=== PATIENT | female | born 1985 | race Caucasian/White ===

== ENCOUNTER 2019-08-27 17:27 | Inpatient (IN) | payer SELFPAY ==
[2019-08-27] MEDS ORDERED: Ondansetron ODT 4 MG TAB PO PRN (19:28)
[2019-08-27] MEDS ORDERED: Dextrose 50% Abboject 50 ML SYRINGE SLOW IVP PRN (19:28)
[2019-08-27] MEDS ORDERED: hydrALAZINE 20 MG/ML VIAL SLOW IVP PRN (19:28)
[2019-08-27] MEDS ORDERED: Dextrose 5% in Water 1,000 ML IV PRN (19:28)
[2019-08-27] MEDS ORDERED: traMADol HCl 50 MG TAB PO PRN ×2 (19:35)
[2019-08-27] MEDS ORDERED: Cyclobenzaprine 10 MG TAB PO PRN (19:35)
--- NOTE | 2019-08-27 19:40 | RAD ---
XR Chest 1 View Portable History: Preop evaluation Comparison: None. Findings: Lungs are clear. No pneumothorax. No effusion. Cardiac silhouette and mediastinal contours are within normal limits. Impression: No acute thoracic abnormality.
[2019-08-27 19:50] VITALS: BMI 36.6
[2019-08-27 19:54] LABS: #Basophils 0.1 thou/uL (0.0-0.2); #Eosinphils 0.2 thou/uL (0.0-0.7); #Lymphocytes 2.2 thou/uL (1.20-3.40); #Monocytes 0.7 thou/uL (0.11-0.59); #Neutrophils 9.6 thou/uL (1.40-6.50); %Basophils 0.8 % (0.0-1.0); %Eosinophils 1.2 % (0.0-10.0); %Lymphocytes 17.4 % (21.0-51.0); %Monocytes 5.1 % (0.0-10.0); %Neutrophils 75.5 % (42.0-75.0); Hemoglobin 12.8 g/dL (12.0-16.0); Mean Corpuscular HGB CONC 33.2 g/dL (32.0-36.0); Mean Corpuscular Hemoglobin 28.4 pg (27.0-31.0); Mean Corpuscular Volume 85.6 fL (78.0-98.0); Mean Platelet Volume 8.8 fL (7.4-10.4); Platelet Count 307 thou/uL (130-400); RBC Distribution Width 11.6 % (11.5-14.5); Red Blood Cell (RBC) Count 4.49 mill/uL (4.20-5.40); White Blood Cell (WBC) Count 12.7 thou/uL (4.8-10.8)
[2019-08-27] MEDS: Morphine 4 MG/ML VIAL SLOW IVP PRN ×2 (19:54→22:27)
[2019-08-27] MEDS: Sodium Chloride 0.9% 1,000 ML IV SCH (19:56)
[2019-08-27 20:00] LABS: Prothrombin Time 12.8 SEC (12.0-14.7)
[2019-08-27 20:03] LABS: BHCG - Serum Negative (NEGATIVE); Pregs Control Background? CLEAR/WHITE (CLR/WHITE); Pregs Control Bar Appear? YES (CONTROL BAR)
[2019-08-27 20:27] LABS: Alcohol Less than 10 mg/dL (Less than 10); Anion Gap 13 mmol/L (10-20); BUN (Urea Nitrogen) 11 mg/dL (7.0-18.7); Calc. Creatinine Clearance 166 mL/min (70-130); Calcium 9.2 mg/dL (7.8-10.44); Carbon Dioxide 26 mmol/L (22-29); Chloride 106 mmol/L (98-107); Estimated GFR-MDRD 89; Glucose 100 mg/dL (70-105); Magnesium 1.9 mg/dL (1.6-2.6); Phosphorus 2.8 mg/dL (2.3-4.7); Potassium 3.6 mmol/L (3.5-5.1); Sodium 141 mmol/L (136-145)
[2019-08-27] MEDS ORDERED: PHOS-NAK 1 PKT PACK PO SCH (20:45)
--- NOTE | 2019-08-27 20:59 | HP ---
TRAUMA SURGEON: Dr. Keating. CONSULTING PHYSICIAN: Dr. Hsu. HISTORY OF PRESENT ILLNESS: The patient is a 34-year-old female, who presents as a direct admit with a right trimalleolar ankle fracture. The patient reports she jumped out of her truck and slipped in the mud, subsequently twisting her right ankle and falling down. She denies loss of consciousness or hitting her head. She does not take any anticoagulation. She was able eventually to get up and drive herself to the emergency department in [place] where it was determined that the patient has a right trimalleolar ankle fracture and she was directly admitted to [place] [address] [address] [facility]. Hsu of Orthopedic Surgery explained to evaluate her tomorrow and taken to the OR. At the time of my evaluation, the patient complained of right ankle pain, which was splinted. She denies numbness or tingling in the bilateral upper and lower extremities. She denies loss of consciousness. REVIEW OF SYSTEMS: All additional 10-point review of systems negative except as indicated above. PAST MEDICAL HISTORY: None. PAST SURGICAL HISTORY: Tonsillectomy and appendectomy. SOCIAL HISTORY: The patient lives at home with her teenage children. She denies drug, alcohol, or tobacco use. MEDICATIONS: None. ALLERGIES: PEANUTS, BUT NO KNOWN DRUG ALLERGIES. PHYSICAL EXAMINATION: VITAL SIGNS: Temperature 98.5, pulse 66, respirations 16, oxygen saturation 99% on room air, blood pressure 117/70. PRIMARY SURVEY: Airway intact. Adequate breath sounds bilaterally. 2+ pulses in bilateral radials, femorals, and DPs. GCS 15. Gross motor and sensation are intact. No lacerations, bruising, or external bleeding. Right lower extremity with splint of clean, dry, and in place. SECONDARY SURVEY: HEAD: Normocephalic and atraumatic. No gross palpable skull deformities or tenderness. EYES: Pupils 3-2, equal, round, reactive to light bilaterally. ENT: No hemotympanum. No epistaxis. No septal hematoma. Midface stable to manipulation. No blood in the oropharynx. Dentition is intact. No anterior neck injury/crepitus/tenderness. C-SPINE: No step-offs or deformities. Nontender. C-collar not in place. CHEST: Nontender. No crepitus. No abrasions or ecchymosis. Equal chest movement. ABDOMEN: Soft, nontender, nondistended. PELVIS: Stable to palpation. Nontender. No abrasions or ecchymosis. RECTAL: Deferred. GENITOURINARY: Deferred. EXTREMITIES: The patient has a splint to her right tib-fib and ankle that is clean, dry, and intact. 2+ pulses in bilateral radials, femorals, and DPs. BACK/SPINE: No step-offs or deformities to palpation. No tenderness to the thoracic or lumbar spine. No abrasions or ecchymosis noted. NEUROLOGIC: 5/5 strength in bilateral regulatory affairs specialist, plantar flexion, and dorsiflexion. Gross normal sensation x4 extremities. LABORATORY FINDINGS: White count 12.7, hemoglobin 12.8, hematocrit 38.4, platelets 307. INR 1.0. Serum is negative. The patient's chemistry panel is still pending as well as urine drug screen. DIAGNOSTIC FINDINGS: X-ray of the right ankle demonstrates displaced trimalleolar fracture. Chest x-ray demonstrates no acute thoracic abnormality. ASSESSMENT: 1. Status post mechanical fall from a truck. 2. Right-sided trimalleolar ankle fracture. 3. Acute traumatic pain secondary to trauma. PLAN: The patient will have a regular diet. She will be n.p.o. to go to the OR tomorrow with Orthopedic Surgery for fixation of her right trimalleolar fracture. She will have IV fluids at 120 an hour overnight to receive both scheduled and p.r.n. pain medication. Medicine has given the patient IV morphine. Now we are re-evaluating pain in 30 minutes and make further changes as needed. Postoperatively, she will work with Physical and Occupational Therapy and will likely be discharged home with either a walker or crutches. This patient was discussed with Dr. Keating before this dictation. Job ID: [id number]
[2019-08-27] MEDS: Famotidine/PF 20 mg/2ml Vial SLOW IVP SCH (21:05)
[2019-08-27] MEDS: Senokot S 8.6-50 MG TAB PO SCH (21:05)
[2019-08-27] MEDS ORDERED: Ibuprofen 600 MG TAB PO SCH (22:00)
[2019-08-27] MEDS ORDERED: HYDROcodone/Acetaminophen 5/325 mg Tablet PO PRN ×4 (22:49→23:06)
[2019-08-27] MEDS ORDERED: Ketorolac Tromethamine 30 MG/ML VIAL IVP SCH (23:00)
[2019-08-27] MEDS ORDERED: Acetaminophen 500 MG TAB PO SCH ×2 (23:59)
[2019-08-28] MEDS: Morphine 4 MG/ML VIAL SLOW IVP PRN (00:26)
[2019-08-28] MEDS ORDERED: Gabapentin 300 MG CAP PO SCH (00:30)
[2019-08-28] MEDS ORDERED: Morphine 4 MG/ML VIAL SLOW IVP SCH (00:30)
[2019-08-28] MEDS ORDERED: Methocarbamol 500 MG TAB PO PRN (01:03)
[2019-08-28] MEDS ORDERED: Naloxone HCl 0.4 mg/ml Vial IV PRN (01:07)
[2019-08-28] MEDS ORDERED: HYDROmorphone 10 mg/100 ml CADD IV PRN ×2 (01:07→13:45)
[2019-08-28] MEDS ORDERED: Fentanyl 100 MCG/2 ML VIAL SLOW IVP SCH (01:15)
[2019-08-28] MEDS: Acetaminophen 500 MG TAB PO SCH ×4 (02:58→21:13)
[2019-08-28 05:03] LABS: #Basophils 0.1 thou/uL (0.0-0.2); #Eosinphils 0.3 thou/uL (0.0-0.7); #Lymphocytes 2.1 thou/uL (1.20-3.40); #Monocytes 0.9 thou/uL (0.11-0.59); #Neutrophils 4.7 thou/uL (1.40-6.50); %Basophils 1.5 % (0.0-1.0); %Eosinophils 3.9 % (0.0-10.0); %Lymphocytes 25.9 % (21.0-51.0); %Monocytes 10.6 % (0.0-10.0); %Neutrophils 58.1 % (42.0-75.0); Hemoglobin 11.5 g/dL (12.0-16.0); Mean Corpuscular HGB CONC 32.8 g/dL (32.0-36.0); Mean Corpuscular Hemoglobin 28.2 pg (27.0-31.0); Mean Corpuscular Volume 86.1 fL (78.0-98.0); Mean Platelet Volume 8.9 fL (7.4-10.4); Platelet Count 249 thou/uL (130-400); RBC Distribution Width 11.6 % (11.5-14.5); Red Blood Cell (RBC) Count 4.09 mill/uL (4.20-5.40); White Blood Cell (WBC) Count 8.1 thou/uL (4.8-10.8)
[2019-08-28 05:35] LABS: Anion Gap 11 mmol/L (10-20); BUN (Urea Nitrogen) 10 mg/dL (7.0-18.7); Calc. Creatinine Clearance 152 mL/min (70-130); Calcium 8.3 mg/dL (7.8-10.44); Carbon Dioxide 25 mmol/L (22-29); Chloride 108 mmol/L (98-107); Estimated GFR-MDRD 80; Glucose 101 mg/dL (70-105); Magnesium 1.9 mg/dL (1.6-2.6); Phosphorus 4.3 mg/dL (2.3-4.7); Potassium 3.8 mmol/L (3.5-5.1); Sodium 140 mmol/L (136-145)
[2019-08-28] MEDS: Ketorolac Tromethamine 30 MG/ML VIAL IVP SCH ×3 (06:36→18:01)
[2019-08-28] MEDS: Sodium Chloride 0.9% 1,000 ML IV SCH ×3 (06:41→15:23)
[2019-08-28] MEDS ORDERED: CEFAZOLIN 2 GM in Premix Bag 1 BAG IVPB SCH ×2 (08:15→14:00)
--- NOTE | 2019-08-28 08:22 | PDOC.EVN ---
Event Note - Event Note Event Note: See H&P by trauma PA. Plans per ortho
--- NOTE | 2019-08-28 08:30 | CON ---
DATE OF CONSULTATION: CHIEF COMPLAINT: Right ankle pain. HISTORY OF PRESENT ILLNESS: Ms. Medley is a 34-year-old female, who fell while opening a gate while feeding her calves. She fell yesterday afternoon. She rolled her ankle. She had an ankle fracture and dislocation. She was treated in [place] with closed reduction and splinting. She was transferred over for further care. She has been admitted to the hospital. She is currently resting comfortably. She has received pain control overnight. No other injuries. She is n.p.o. in preparation for surgery today. REVIEW OF SYSTEMS: Positive for right ankle pain. Otherwise, negative 10-point review of systems. PAST MEDICAL HISTORY: Negative. PAST SURGICAL HISTORY: Cholecystectomy and tonsillectomy. SOCIAL HISTORY: The patient lives with her family. She does not use tobacco, alcohol, or drugs. MEDICATIONS: None. ALLERGIES: TO PEANUTS. PHYSICAL EXAMINATION: VITAL SIGNS: Temperature is 98.5, pulse is 81, respiratory rate is 18, oxygen saturation 91%, and blood pressure is 106/65. GENERAL: She is alert and oriented, in no apparent distress. RESPIRATORY: Breathing comfortably. ABDOMEN: Soft, nontender, and nondistended. MUSCULOSKELETAL: The patient's right lower extremity has a splint. She is able to flex and extend the digits. She is able to feel light touch. She has warm and well-perfused foot. IMAGING DATA: X-rays of the right ankle demonstrate a high fibula fracture with opening of the syndesmosis and medial malleolus fracture. There was initial significant subluxation. The alignment is improved and postreduction x-ray. IMPRESSION: Unstable right ankle fracture. PLAN: At this point, the patient will need to go to the operating room for open reduction and internal fixation. We will plan for this morning. She will be n.p.o. Continue elevation of the right leg. She will need antibiotics on-call to the operating room. Likely discharge tomorrow after she mobilize with physical therapy. Job ID: [id number]
--- NOTE | 2019-08-28 09:41 | PRG ---
DATE OF SERVICE: 08/28/2019 SUBJECTIVE: The patient remains on the surgical floor. The patient sustained a right trimalleolar fracture yesterday. The patient is awaiting surgical repair at this time. The patient is currently n.p.o. and on a POLICEMAN Dilaudid pump for pain. The patient continues to have moderate amount of pain. OBJECTIVE: VITAL SIGNS: Temperature 98.2, pulse 63, respirations 16, SpO2 of 97% on room air, blood pressure 137/73. GENERAL: Well-appearing young female, awake, alert, in moderate distress due to right ankle pain. RESPIRATORY: Equal chest rise and fall. Bilateral breath sounds clear. No respiratory distress. CARDIAC: Regular rate and regular rhythm. EXTREMITIES: Right lower extremity with splint clean, dry, and intact, cap refill less than 2 seconds. LABORATORY DATA: WBC 8.1, RBC 4.09, hemoglobin 11.5, hematocrit 35.2, platelets 249. Sodium 140, potassium 3.8, chloride 108, BUN 10, creatinine 0.81, estimated GFR 80, glucose 101, calcium 8.3, phosphorus 4.3, magnesium 1.9. ASSESSMENT: 1. Status post mechanical fall from truck. 2. Right-sided trimalleolar ankle fracture. 3. Acute traumatic pain secondary to trauma. PLAN: Continue n.p.o. status and IV maintenance fluids normal saline at 120 an hour. The patient is scheduled for OR for repair of her right trimalleolar ankle fracture this morning by Dr. Hsu. We will have patient to work with physical and occupational therapy postop. Continue POLICEMAN Dilaudid pump for pain management. The plan was discussed with the attending who agrees. Job ID: [id number]
[2019-08-28] MEDS: Gabapentin 300 MG CAP PO SCH ×3 (09:57→21:13)
[2019-08-28] MEDS: Famotidine/PF 20 mg/2ml Vial SLOW IVP SCH (09:57)
[2019-08-28] MEDS: Senokot S 8.6-50 MG TAB PO SCH ×2 (10:01→21:13)
[2019-08-28] MEDS: Polyethylene Glycol 3350 17 GM Packet PO SCH (10:01)
[2019-08-28] MEDS ORDERED: PROPOFOL 200 MG/20 ML VIAL ONE (10:22)
[2019-08-28] MEDS ORDERED: Ondansetron PF 4 MG/2 ML Vial ONE (10:22)
[2019-08-28] MEDS ORDERED: Lidocaine 1% PF 5 ML VIAL ONE ×2 (10:22→13:04)
[2019-08-28] MEDS ORDERED: Dexamethasone 20 MG/5 ML VIAL ONE (10:22)
[2019-08-28] MEDS ORDERED: Ketorolac Tromethamine 30 MG/ML VIAL ONE (10:22)
[2019-08-28] MEDS ORDERED: Fentanyl 100 MCG/2 ML VIAL ONE ×3 (11:20→13:18)
[2019-08-28] MEDS ORDERED: Ketorolac Tromethamine 30 MG/ML VIAL IVP PRN (11:47)
[2019-08-28] MEDS ORDERED: Ondansetron HCl/PF 4 MG/2 ML Vial IVP PRN (11:47)
[2019-08-28] MEDS ORDERED: Morphine Sulfate 2 MG/ML SYRINGE SLOW IVP PRN (11:47)
[2019-08-28] MEDS ORDERED: HYDROmorphone 2 MG/ML VIAL SLOW IVP PRN (11:47)
[2019-08-28] MEDS ORDERED: Promethazine HCl 25 MG/ML VIAL IM PRN (11:47)
[2019-08-28] MEDS ORDERED: Meperidine HCl/PF 25 MG/ML VIAL SLOW IVP PRN (11:47)
[2019-08-28] MEDS ORDERED: Promethazine HCl 25 MG/ML VIAL SLOW IVP PRN (11:47)
[2019-08-28] MEDS ORDERED: PACU-Morphine 4MG/ML VIAL SLOW IVP PRN (11:47)
[2019-08-28] MEDS ORDERED: Bupivacaine PF 0.5% 30 ML VIAL ONE (12:17)
--- NOTE | 2019-08-28 12:44 | OP ---
DATE OF PROCEDURE: 08/28/2019 PROCEDURE PERFORMED: Open reduction and internal fixation of right bimalleolar ankle fracture with syndesmosis fixation. PREOPERATIVE DIAGNOSIS: Unstable bimalleolar ankle fracture with disruption of syndesmosis. POSTOPERATIVE DIAGNOSIS: Unstable bimalleolar ankle fracture with disruption of syndesmosis. COMPLICATIONS: None. ESTIMATED BLOOD LOSS: 50 mL. ANESTHESIA: General plus local. IMPLANT: Synthes 7-hole 1/3 tubular plate plus multiple nonlocking screws. INDICATIONS: Ms. Medley is a 34-year-old female, who has fallen and fractured her ankle. She has an unstable ankle fracture and has been indicated for open reduction and internal fixation to restore anatomic alignment and promote healing. Risks have been reviewed in detail. She has elected to proceed with the operation. DESCRIPTION OF PROCEDURE: Ms. Medley was identified in the preoperative holding area. Her correct extremity was marked. She was carried to the operating room. She was positioned supine. General anesthesia was induced. A multidisciplinary time-out was performed. The right lower extremity was prepped and draped in sterile fashion. We began the procedure with a lateral approach to the distal fibula. We dissected down through the subcutaneous tissues to the fascia, which was opened. We exposed the underlying fibula. We identified the fracture. We exposed the bone proximally and distally. At this point, we reduced the fracture using a reduction forceps. We held this in an appropriate position with a reduction clamp. We then applied a 7-hole Synthes one-third tubular plate. Multiple screws were placed proximally and distally. We locked the plate to the bone. At this point, we moved to the medial aspect of the ankle. We made a small incision over the medial malleolus. We exposed the underlying medial malleolar fracture. At this point, we irrigated the joint. We then reduced the fracture into its anatomic position. We then placed two 4.0 partially-threaded screws. We took x-ray images confirming hardware placement and alignment. There were no complications. We then performed a stress view x-ray, which was positive. We replaced the most inferior screw in our distal fibular plate with a syndesmosis screw. We held the foot in dorsiflexion and reduced the syndesmosis with a reduction clamp. We then placed our 4.0 mm screw across the syndesmosis. We took final images at this point, the stress view x-ray was negative. We thoroughly irrigated with copious lavage. We then closed appropriately in layers and placed a well-padded splint. The patient was taken to the recovery room in good condition. Job ID: [id number]
[2019-08-28] MEDS ORDERED: Meperidine HCl/PF 25 MG/ML VIAL ONE (13:38)
[2019-08-28] MEDS: CEFAZOLIN 2 GM in Premix Bag 1 BAG IVPB SCH (18:00)
[2019-08-29] MEDS: Ketorolac Tromethamine 30 MG/ML VIAL IVP SCH ×2 (00:08→05:31)
[2019-08-29] MEDS: Sodium Chloride 0.9% 1,000 ML IV SCH (00:14)
[2019-08-29 01:22] VITALS: TEMP 98.4
[2019-08-29] MEDS: Acetaminophen 500 MG TAB PO SCH ×2 (02:41→08:52)
[2019-08-29] MEDS: CEFAZOLIN 2 GM in Premix Bag 1 BAG IVPB SCH (02:41)
--- NOTE | 2019-08-29 03:17 | PRG ---
DATE OF SERVICE: 08/28/2019 SUBJECTIVE: The patient was seen today. She is postoperative day 0 after fixation of a right bimalleolar ankle fracture. She reports her pain is well controlled on her Dilaudid MANAGER DAIRY. She is tolerating her regular diet. OBJECTIVE: VITAL SIGNS: Temperature 98.8, pulse 73, respirations 18, oxygen saturation 96% on room air, and blood pressure 109/67. GENERAL: Well-appearing middle-aged female, lying in bed with no signs of acute distress. PULMONARY: Equal chest rise and fall. No signs of acute respiratory distress. ASSESSMENT: 1. Status post fall from truck. 2. Right bimalleolar fracture, status post repair. 3. Acute traumatic pain, improving. PLAN: Continue current diet and pain regimen. Continue Dilaudid MANAGER DAIRY. Toradol to finish this evening. We will start the patient on ibuprofen in its place tomorrow. We will transition the patient to p.o. pain medications tomorrow. Job ID: [id number]
[2019-08-29 05:27] LABS: #Basophils 0.1 thou/uL (0.0-0.2); #Eosinphils 0.1 thou/uL (0.0-0.7); #Lymphocytes 1.5 thou/uL (1.20-3.40); #Monocytes 0.8 thou/uL (0.11-0.59); #Neutrophils 6.3 thou/uL (1.40-6.50); %Basophils 1.1 % (0.0-1.0); %Eosinophils 1.3 % (0.0-10.0); %Lymphocytes 17.4 % (21.0-51.0); %Monocytes 9.5 % (0.0-10.0); %Neutrophils 70.8 % (42.0-75.0); Hemoglobin 10.6 g/dL (12.0-16.0); Mean Corpuscular HGB CONC 33.8 g/dL (32.0-36.0); Mean Corpuscular Hemoglobin 29.3 pg (27.0-31.0); Mean Corpuscular Volume 86.6 fL (78.0-98.0); Platelet Count 214 thou/uL (130-400); RBC Distribution Width 11.5 % (11.5-14.5); Red Blood Cell (RBC) Count 3.61 mill/uL (4.20-5.40); White Blood Cell (WBC) Count 8.8 thou/uL (4.8-10.8)
[2019-08-29 05:41] LABS: Anion Gap 13 mmol/L (10-20); BUN (Urea Nitrogen) 10 mg/dL (7.0-18.7); Calc. Creatinine Clearance 168 mL/min (70-130); Calcium 8.1 mg/dL (7.8-10.44); Carbon Dioxide 22 mmol/L (22-29); Chloride 109 mmol/L (98-107); Estimated GFR-MDRD 90; Glucose 99 mg/dL (70-105); Magnesium 2.1 mg/dL (1.6-2.6); Phosphorus 3.7 mg/dL (2.3-4.7); Potassium 3.8 mmol/L (3.5-5.1); Sodium 140 mmol/L (136-145)
[2019-08-29] MEDS ORDERED: Ibuprofen 600 MG TAB PO SCH (06:00)
[2019-08-29] MEDS ORDERED: Cyclobenzaprine 10 MG TAB PO PRN (08:32)
[2019-08-29] MEDS: Senokot S 8.6-50 MG TAB PO SCH (08:52)
[2019-08-29] MEDS: Polyethylene Glycol 3350 17 GM Packet PO SCH (08:52)
[2019-08-29] MEDS: Gabapentin 300 MG CAP PO SCH (08:52)
[2019-08-29] MEDS ORDERED: Enoxaparin Sodium 30 MG/0.3 ML SYRINGE SC SCH (09:00)
--- NOTE | 2019-08-29 09:26 | RAD ---
RIGHT ANKLE 3 FLUOROSCOPIC VIEWS TAKEN IN OR: INDICATION: Intraoperative imaging with fluoroscopy during open reduction internal fixation procedure right ankle . FINDINGS/IMPRESSION: Films demonstrate internal fixation of the distal fibula with plate and screws. The screws are also seen transfixing the medial malleolus. POS: [facility]
[2019-08-29 11:35] VITALS: BP 128/65
[2019-08-29] MEDS ORDERED: traMADol HCl 50 MG TAB PO SCH (12:00)
--- NOTE | 2019-08-29 15:30 | DIS ---
DATE OF ADMISSION: 08/27/2019 DATE OF DISCHARGE: 08/29/2019 ATTENDING PHYSICIAN: Dr. Keating. DISCHARGE ATTENDING: Dr. Howard. CONSULTATION: Orthopedic Surgery, Dr. Hsu. PROCEDURES: On 08/28/2019, open reduction and internal fixation of right bimalleolar ankle fracture with syndesmosis fixation. PRIMARY DIAGNOSES: 1. Status post mechanical fall from truck, right-sided bimalleolar ankle fracture. 2. Acute traumatic pain. DISCHARGE MEDICATIONS: Flexeril 10 mg p.o. 3 times a day p.r.n. muscle spasms # 30, gabapentin 300 mg p.o. three times a day as needed for pain #30, tramadol 50 mg p.o. q.6 hours p.r.n. pain #30, acetaminophen 1000 mg q.6 hours, ibuprofen 600 mg p.o. q.8 hours, MiraLAX as needed for constipation. HISTORY OF PRESENT ILLNESS AND HOSPITAL COURSE: This is a 34-year-old female, who presented as a direct admit with a right ankle fracture. The patient reports that she jumped out of her truck and slipped into the mud, subsequently twisting her right ankle and falling down. The patient denied any loss of consciousness or hitting her head. The patient had pain control issues preop. Multiple doses of IV and oral pain medication were given without any relief. The patient eventually was placed on a ELEVATOR PILOT Dilaudid pump. Postoperatively, the patient's pain was well controlled. The patient was able to ambulate with physical therapy. On the day of discharge, the patient was seen and evaluated by Dr. Howard. The patient's vital signs were stable. Neuro exam was unremarkable including cardiopulmonary and GI exam. The patient is able to tolerate a diet and voices no complaints or concerns. The patient was deemed stable for discharge home. DISPOSITION: Stable. INSTRUCTIONS: Location home. DIET: Regular diet as tolerated. ORTHOPEDIC LIMITATIONS: Nonweightbearing, right lower extremity. FOLLOWUP: Follow up with Dr. Hsu in 10 days. No need to follow up with Trauma Services. Please call for any questions. This is just a summary of this hospital visit. Job ID: [id number] MTDD
[2019-08-29] MEDS ORDERED: Aspirin 81 mg Enteric Coated Tablet PO SCH (21:00)
== END 2019-08-29 14:47 | disposition home or self-care (01) | DRG 494 ==
LOC: OBSVTOIN 18:11 → SJJU 18:11
PROVIDERS: ADMIT Surgery; ATTEND Surgery
PROC: 0QSG04Z Reposition Right Tibia with Internal Fixation Device, Open Approach (ICD-10-PCS; principal; 2019-08-28)
PROC: 0QSJ04Z Reposition Right Fibula with Internal Fixation Device, Open Approach (ICD-10-PCS; 2019-08-28)
DX: S82.841A Displaced bimalleolar fracture of right lower leg, initial encounter for closed fracture (principal); W17.89XA Other fall from one level to another, initial encounter; Z90.89 Acquired absence of other organs; Z90.49 Acquired absence of other specified parts of digestive tract
CPT/HCPCS: 36415; 71045; 76000; 80048; 80307; 83735; 84100; 84703; 85025; 85610; C1713; J0690; J1100; J1650; J1885; J2001; J2175; J2270; J2405; J2704; J3010; S0020; S0028

== ENCOUNTER 2020-02-21 09:00 | Outpatient (CLI) | payer OTHER ==
[2020-02-21 17:04] LABS: SARS-CoV-2 MS2 Positive; SARS-CoV-2 N Gene Negative; SARS-CoV-2 S Gene Negative; SARS-CoV-2 by NAA Not Detected (NotDetected); SARS-CoV-2 orf1ab Negative
== END 2020-02-21 09:01 | disposition home or self-care (01) ==
LOC: LABBT 09:00
PROVIDERS: ATTEND Orthopaedic Surgery
DX: T85.848A Pain due to other internal prosthetic devices, implants and grafts, initial encounter (principal); Z20.828 Contact with and (suspected) exposure to other viral communicable diseases
CPT/HCPCS: 87635; U0003

== ENCOUNTER 2020-02-24 05:48 | Day surgery (SDC) | payer OTHER ==
[2020-02-22 14:28] VITALS: BMI 37.4
[2020-02-24] MEDS ORDERED: Lidocaine 1% w/Epinephrine 1:100K 20 ML VIAL ONE (06:37)
[2020-02-24] MEDS ORDERED: Bupivacaine HCl 0.5%/Epinephrine 1:200,000/PF 30 ml Vial ONE (06:37)
[2020-02-24] MEDS ORDERED: Fentanyl 100 MCG/2 ML VIAL ONE (06:56)
[2020-02-24] MEDS ORDERED: Midazolam HCl 2 mg/2 ml Vial ONE ×2 (06:56→07:14)
--- NOTE | 2020-02-24 12:22 | OP ---
DATE OF PROCEDURE: 02/24/2020 OPERATION PERFORMED: Right ankle hardware removal. PREOPERATIVE DIAGNOSIS: History of ankle fracture with syndesmosis screw, now indicated for removal. POSTOPERATIVE DIAGNOSIS: History of ankle fracture with syndesmosis screw, now indicated for removal. COMPLICATIONS: None. ESTIMATED BLOOD LOSS: Minimal. IMPLANTS: None. INDICATIONS: Ms. Medley is a 35-year-old female who has had a bimalleolar ankle fracture, requiring syndesmosis screw fixation. The patient has been indicated now for screw removal. She has done well with her ankle fracture. Risks have been reviewed and she wants to proceed. DESCRIPTION OF PROCEDURE: Ms. Medley was identified in the preoperative holding area. Her correct extremity was marked. She was carried to the operating room. She was positioned supine. General anesthesia was induced. A multidisciplinary time-out was performed. The right lower extremity was prepped and draped in a sterile fashion. We began the procedure with a small incision over the lateral ankle. We dissected down through the subcutaneous tissues to the instrumentation. We used intraoperative x-ray to confirm that we were on the appropriate screw. We then backed out the screw using a screwdriver. The screw was fully removed. At this point, we took final x-ray images including a stress view x-ray, which was negative. We closed the wound and placed local anesthetic. A sterile dressing was applied. The patient was taken to the recovery room in good condition. Job ID: [id number]
[2020-02-24] MEDS ORDERED: Lidocaine 1% PF 5 ML VIAL ONE (13:46)
[2020-02-24] MEDS ORDERED: Ondansetron PF 4 MG/2 ML Vial ONE (13:46)
[2020-02-24] MEDS ORDERED: PROPOFOL 200 MG/20 ML VIAL ONE (13:46)
[2020-02-24] MEDS ORDERED: Dexamethasone 20 MG/5 ML VIAL ONE (13:46)
== END 2020-02-24 09:30 | disposition home or self-care (01) ==
LOC: SDC 05:48
PROVIDERS: ATTEND Orthopaedic Surgery
PROC: 0YP90YZ Removal of Other Device from Right Lower Extremity, Open Approach (ICD-10-PCS; principal; 2020-02-24)
DX: T84.84XA Pain due to internal orthopedic prosthetic devices, implants and grafts, initial encounter (principal); J45.909 Unspecified asthma, uncomplicated; Z91.010 Allergy to peanuts
CPT/HCPCS: 76000; J0670; J0690; J1100; J2250; J2405; J2704; J3010

== ENCOUNTER 2021-04-05 11:57 | Outpatient (CLI) | payer OTHER | END 2021-04-05 11:58 | disposition home or self-care (01) | LOC: DTY/OP 11:57 | PROVIDERS: ATTEND Specialist | DX: Z01.818 Encounter for other preprocedural examination (principal); E66.01 Morbid (severe) obesity due to excess calories | CPT/HCPCS: 97802 ==

== ENCOUNTER 2021-05-07 13:05 | Outpatient (CLI) | payer OTHER | END 2021-05-07 13:06 | disposition home or self-care (01) | LOC: DTY/OP 13:05 | PROVIDERS: ATTEND Specialist | DX: Z01.818 Encounter for other preprocedural examination (principal); Z71.3 Dietary counseling and surveillance; E66.01 Morbid (severe) obesity due to excess calories; Z68.42 Body mass index [BMI] 45.0-49.9, adult | CPT/HCPCS: 97802 ==

== ENCOUNTER 2021-09-06 13:55 | Outpatient (CLI) | payer OTHER | END 2021-09-06 13:56 | disposition home or self-care (01) | LOC: DTY/OP 13:55 | PROVIDERS: ATTEND Specialist | DX: Z01.818 Encounter for other preprocedural examination (principal); E66.01 Morbid (severe) obesity due to excess calories; Z71.3 Dietary counseling and surveillance | CPT/HCPCS: 36415; 82607; 82746; 97802 ==

== ENCOUNTER 2021-10-07 08:53 | Outpatient (CLI) | payer OTHER ==
[2021-10-07 09:51] LABS: #Basophils 0.2 10x3/uL (0.0-0.2); #Eosinphils 0.6 10x3/uL (0.0-0.5); #Monocytes 0.6 10x3/uL (0.0-1.1); #Neutrophils 4.9 10x3/uL (1.5-8.4); %Basophils 2.3 % (0.0-2.0); %Eosinophils 6.6 % (0.0-6.0); %Lymphocytes 29.6 % (18.0-47.0); %Neutrophils 54.2 % (40.0-75.0); Hemoglobin 14.5 g/dL (12.0-15.5); Mean Corpuscular HGB CONC 32.7 g/dL (32.0-36.0); Mean Corpuscular Volume 85.9 fl (81.6-98.3); Mean Platelet Volume 11.6 fl (7.4-10.4); Platelet Count 311 10x3/uL (150-450); RBC Distribution Width 12.7 % (11.5-14.5); Red Blood Cell (RBC) Count 5.17 10x6/uL (3.90-5.03); White Blood Cell (WBC) Count 9.1 10x3/uL (3.5-10.5)
[2021-10-07 10:27] LABS: Anion Gap 14 mmol/L (10-20); BUN (Urea Nitrogen) 15 mg/dL (7.0-18.7); Calc. Creatinine Clearance 0 mL/min (70-130); Calcium 9.6 mg/dL (7.8-10.44); Carbon Dioxide 25 mmol/L (22-29); Chloride 103 mmol/L (98-107); Glucose 102 mg/dL (70-105); Potassium 4.2 mmol/L (3.5-5.1); Sodium 138 mmol/L (136-145)
[2021-10-07 19:51] LABS: SARS-CoV-2 PCR by NAA Not Detected (NotDetected)
== END 2021-10-07 08:54 | disposition home or self-care (01) ==
LOC: LABBT 08:53
PROVIDERS: ATTEND Specialist
DX: Z01.812 Encounter for preprocedural laboratory examination (principal); E66.01 Morbid (severe) obesity due to excess calories; Z20.822 Contact with and (suspected) exposure to COVID-19
CPT/HCPCS: 80048; 85025; U0003; U0005

== ENCOUNTER 2021-10-07 12:45 | Inpatient (IN) | payer OTHER ==
[2021-10-08 12:45] VITALS: BMI 42.4
[2021-10-10] MEDS ORDERED: Ketorolac Tromethamine 30 MG/ML VIAL ONE (06:37)
[2021-10-10] MEDS ORDERED: Acetaminophen 500 MG TAB ONE (06:37)
[2021-10-10] MEDS ORDERED: HYDROmorphone 2 MG/ML VIAL ONE (06:37)
[2021-10-10] MEDS ORDERED: fentaNYL Citrate/PF 100 MCG/2 ML SYRINGE ONE (06:37)
[2021-10-10] MEDS ORDERED: Heparin 5,000 UNITS/ML VIAL ONE (06:37)
[2021-10-10] MEDS ORDERED: Lidocaine 1% w/Epinephrine 1:100K 20 ML VIAL ONE (06:55)
[2021-10-10] MEDS ORDERED: Bupivacaine 0.25% 10 ML VIAL ONE (06:55)
[2021-10-10] MEDS ORDERED: Famotidine/PF 20 mg/2ml Vial ONE (07:17)
[2021-10-10] MEDS ORDERED: ceFAZolin (BATCH) 2 GM/100 ML BAG ONE (07:26)
[2021-10-10] MEDS ORDERED: Midazolam HCl 2 mg/2 ml Vial ONE (07:29)
[2021-10-10] MEDS ORDERED: Lidocaine 1% PF 5 ML VIAL ONE (07:41)
[2021-10-10] MEDS ORDERED: PROPOFOL 200 MG/20 ML VIAL ONE (07:41)
[2021-10-10] MEDS ORDERED: Dexamethasone 20 MG/5 ML VIAL ONE (07:41)
[2021-10-10] MEDS ORDERED: PHENYLEPHRINE-NS 100 MCG/ML 10 ML SYRINGE ONE (07:41)
[2021-10-10] MEDS ORDERED: Glycopyrrolate 0.2 MG/ML 5 ML SYRINGE ONE (07:41)
[2021-10-10] MEDS ORDERED: Rocuronium Bromide 10 MG/ML (10ML VIAL) ONE (07:41)
[2021-10-10] MEDS ORDERED: Ondansetron PF 4 MG/2 ML Vial ONE (07:41)
[2021-10-10] MEDS ORDERED: Fentanyl 100 MCG/2 ML VIAL ONE (09:44)
[2021-10-10] MEDS ORDERED: Meperidine HCl/PF 25 MG/ML VIAL ONE (10:02)
[2021-10-10] MEDS ORDERED: Promethazine HCl 25 MG/ML VIAL IM PRN (10:12)
[2021-10-10] MEDS ORDERED: hydrALAZINE 20 MG/ML VIAL SLOW IVP PRN (10:12)
[2021-10-10] MEDS ORDERED: diphenhydrAMINE 50 MG/ML VIAL IVP PRN (10:12)
[2021-10-10] MEDS ORDERED: Morphine 2 MG/ML VIAL SLOW IVP PRN (10:12)
[2021-10-10] MEDS ORDERED: Dextrose 50% Abboject 50 ML SYRINGE SLOW IVP PRN (10:12)
[2021-10-10] MEDS ORDERED: Dextrose 5% in Water 1,000 ML IV PRN (10:12)
[2021-10-10] MEDS ORDERED: Ondansetron PF 4 MG/2 ML Vial IVP PRN (10:12)
[2021-10-10] MEDS: D5 1/2 NS w/20 mEq KCL 1,000 ML IV SCH ×2 (11:54→18:29)
[2021-10-10] MEDS: Morphine 4 MG/ML VIAL SLOW IVP PRN ×2 (11:54→18:29)
[2021-10-10] MEDS: Ketorolac Tromethamine 30 MG/ML VIAL IVP SCH ×2 (11:55→18:06)
[2021-10-10] MEDS: Hydrocodone-Acetamin 15 ML UDCUP PO PRN (15:28)
[2021-10-10] MEDS ORDERED: Enoxaparin Sodium 40 MG/0.4 ML SYRINGE SC SCH (21:00)
[2021-10-11] MEDS: Ketorolac Tromethamine 30 MG/ML VIAL IVP SCH ×2 (01:33→06:14)
[2021-10-11] MEDS: D5 1/2 NS w/20 mEq KCL 1,000 ML IV SCH (03:00)
[2021-10-11 05:30] LABS: #Basophils 0.1 thou/uL (0.0-0.2); #Eosinphils 0.5 thou/uL (0.0-0.7); #Lymphocytes 2.4 thou/uL (1.20-3.40); #Monocytes 1.1 thou/uL (0.11-0.59); #Neutrophils 11.4 thou/uL (1.40-6.50); %Basophils 0.5 % (0.0-1.0); %Eosinophils 3.3 % (0.0-10.0); %Lymphocytes 15.5 % (21.0-51.0); %Monocytes 7.1 % (0.0-10.0); %Neutrophils 73.7 % (42.0-75.0); Hemoglobin 12.9 g/dL (12.0-16.0); Mean Corpuscular HGB CONC 32.5 g/dL (32.0-36.0); Mean Corpuscular Hemoglobin 29.2 pg (27.0-31.0); Mean Corpuscular Volume 89.9 fL (78.0-98.0); Mean Platelet Volume 8.8 fL (7.4-10.4); Platelet Count 270 thou/uL (130-400); RBC Distribution Width 11.6 % (11.5-14.5); Red Blood Cell (RBC) Count 4.42 mill/uL (4.20-5.40); White Blood Cell (WBC) Count 15.4 thou/uL (4.8-10.8)
[2021-10-11 05:46] LABS: Anion Gap 12 mmol/L (10-20); BUN (Urea Nitrogen) 7 mg/dL (7.0-18.7); Calc. Creatinine Clearance 164 mL/min (70-130); Calcium 8.8 mg/dL (7.8-10.44); Carbon Dioxide 24 mmol/L (22-29); Chloride 105 mmol/L (98-107); Glucose 108 mg/dL (70-105); Potassium 4.3 mmol/L (3.5-5.1); Sodium 137 mmol/L (136-145)
[2021-10-11 07:47] VITALS: BP 127/84; TEMP 98.3
[2021-10-11] MEDS: Hydrocodone-Acetamin 15 ML UDCUP PO PRN (08:57)
[2021-10-11] MEDS ORDERED: Pantoprazole 40 MG VIAL IVP SCH (09:00)
== END 2021-10-11 10:20 | disposition home or self-care (01) | DRG 621 ==
LOC: SURG A 10-10 05:59
PROVIDERS: ADMIT Specialist; ATTEND Specialist
PROC: 0DB64Z3 Excision of Stomach, Percutaneous Endoscopic Approach, Vertical (ICD-10-PCS; principal; 2021-10-10)
DX: E66.01 Morbid (severe) obesity due to excess calories (principal); Z68.41 Body mass index [BMI] 40.0-44.9, adult; J45.909 Unspecified asthma, uncomplicated; F41.9 Anxiety disorder, unspecified; Z90.49 Acquired absence of other specified parts of digestive tract; Z98.890 Other specified postprocedural states
CPT/HCPCS: 36415; 80048; 85025; 88307; C9113; J0690; J1100; J1170; J1644; J1650; J1885; J2175; J2250; J2270; J2405; J2704; J3010; J3480; S0020; S0028

== ENCOUNTER 2022-12-12 14:46 | Outpatient (CLI) | payer BC | END 2022-12-12 14:47 | disposition home or self-care (01) | LOC: BICCT 14:46 | PROVIDERS: ATTEND Orthopaedic Surgery | DX: S82.841D Displaced bimalleolar fracture of right lower leg, subsequent encounter for closed fracture with routine healing (principal); M19.071 Primary osteoarthritis, right ankle and foot; S82.51XD Displaced fracture of medial malleolus of right tibia, subsequent encounter for closed fracture with routine healing ==

== ENCOUNTER 2023-01-19 09:54 | Day surgery (SDC) | payer BC ==
[2023-01-16 13:51] VITALS: BMI 31.0
[2023-01-19] MEDS ORDERED: Bupivacaine PF 0.5% 30 ML VIAL ONE (12:00)
[2023-01-19] MEDS ORDERED: EPINEPHrine 1 MG/ML AMP ONE (12:00)
[2023-01-19] MEDS ORDERED: CEFAZOLIN 2 GM VIAL ONE (12:08)
[2023-01-19] MEDS ORDERED: Sodium Chloride 0.9% 100 ML ONE (12:08)
[2023-01-19] MEDS ORDERED: HYDROmorphone 2 MG/ML VIAL ONE (12:18)
[2023-01-19] MEDS ORDERED: Lidocaine 1% PF 5 ML VIAL ONE (12:20)
[2023-01-19] MEDS ORDERED: PROPOFOL 200 MG/20 ML VIAL ONE (12:20)
[2023-01-19] MEDS ORDERED: Ondansetron PF 4 MG/2 ML Vial ONE (12:20)
[2023-01-19] MEDS ORDERED: Ketorolac Tromethamine 30 MG/ML VIAL ONE (12:20)
[2023-01-19] MEDS ORDERED: Dexamethasone 20 MG/5 ML VIAL ONE (12:20)
[2023-01-19] MEDS ORDERED: fentaNYL PF 100 MCG/2 ML SYRINGE ONE (13:40)
== END 2023-01-19 14:45 | disposition home or self-care (01) ==
LOC: SDC 09:54
PROVIDERS: ATTEND Orthopaedic Surgery
PROC: 0SPF04Z Removal of Internal Fixation Device from Right Ankle Joint, Open Approach (ICD-10-PCS; principal; 2023-01-19)
PROC: 0SCF0ZZ Extirpation of Matter from Right Ankle Joint, Open Approach (ICD-10-PCS; principal; 2023-01-19)
DX: T84.84XA Pain due to internal orthopedic prosthetic devices, implants and grafts, initial encounter (principal); M24.071 Loose body in right ankle; Y79.2 Prosthetic and other implants, materials and accessory orthopedic devices associated with adverse incidents
CPT/HCPCS: 87070; 87205; J0171; J1100; J1170; J1885; J2405; J2704; J3490; S0020